=== PATIENT | male | born 1975 | race African-American/Black ===

== ENCOUNTER 2017-05-06 09:10 | Emergency (ER) | payer SELFPAY ==
[~2017-05-06] VITALS: Ht 175.3 cm; Wt 66.0 kg
[2017-05-06 09:13] VITALS: BP 134/87
[2017-05-06] MEDS ORDERED: IPRATROPIUM BROMIDE (0.02%) 0.5MG/2.5ML NEB HHN STA (12:29)
[2017-05-06] MEDS ORDERED: ALBUTEROL (0.083%) 2.5MG/3ML NEB HHN STA (12:29)
[2017-05-06] MEDS ORDERED: PREDNISONE 20MG TABLET PO STA (12:29)
== END 2017-05-06 14:41 | disposition home or self-care (01) ==
LOC: ER 09:13
DX: J45.901 Unspecified asthma with (acute) exacerbation (principal)
CPT/HCPCS: 71045; 94640; 99283; J7512; J7611